=== PATIENT | male | born 1985 | race Hispanic/Latino ===

== ENCOUNTER 2018-10-25 06:21 | Day surgery (SDC) | payer OTHER ==
[2018-10-21 17:07] VITALS: BMI 26.2
[2018-10-25] MEDS ORDERED: Lactated Ringer's 1,000 ML IV ONE ×2 (08:08→10:33)
[2018-10-25] MEDS ORDERED: Bacitracin Ointment 30 GM TUBE ONE (08:18)
[2018-10-25] MEDS ORDERED: Lidocaine 1% w Epi 1:100,000 Inj ONE (08:18)
[2018-10-25] MEDS ORDERED: EPINEPHrine 1 mg/ml (1:1000) Inj ONE (08:18)
[2018-10-25] MEDS ORDERED: Bupivacaine 0.5% Inj(30mL) ONE (08:18)
[2018-10-25] MEDS ORDERED: Propofol 10 mg/ml Inj (20 ML) ONE (08:46)
[2018-10-25] MEDS ORDERED: Dexamethasone 4 mg/1 ml ONE (08:47)
[2018-10-25] MEDS ORDERED: Midazolam 2 MG/2 ML VIAL ONE (09:31)
[2018-10-25] MEDS ORDERED: ePHEDrine 50 mg/ml Inj ONE (10:01)
[2018-10-25] MEDS ORDERED: methylPREDNISolone Depo 80 mg/ml Inj ONE (10:40)
--- NOTE | 2018-10-25 10:54 | PCM.SURG1 ---
Surgeon's Initial Post Op Note - Surgeon's Notes Surgeon: Lebron Jacobs MD Director Electrical Engineering: Ashlie Hutchinson PA-C Type of Anesthesia: General LMA Pre-Operative Diagnosis: Left knee chondramalacia, loose bodies, synovitis Operative Findings: See op report Post-Operative Diagnosis: Same as pre-op dx Operation Performed: Left knee arthroscopy, synovetomy, chondroplasty, removal of loose bodies, partial medial meniscectomy Specimen/Specimens Removed: none Estimated Blood Loss: EBL {In ML}: 3 Date of Surgery/Procedure: 10/25/18 Time of Surgery/Procedure: 09:30
[2018-10-25] MEDS ORDERED: Oxycodone/Acetaminophen 5/325 mg Tab PO PRN (10:55)
[2018-10-25] MEDS ORDERED: HYDROmorphone 0.5 mg/0.5 ml ISec IVP PRN (10:58)
[2018-10-25] MEDS ORDERED: Lactated Ringer's 1,000 ML IV SCH (11:00)
[2018-10-25 13:58] VITALS: BP 110/62; PULSE 67; RESP 20; TEMP 98.1; O2SAT 97
--- NOTE | 2018-10-25 22:17 | OP ---
PROCEDURE DATE: 10/25/2018 ATTENDING PHYSICIAN: Lebron Jacobs MD INFORMATION SECURITY OFFICER: Ashlie Hutchinson PA-C PREOPERATIVE DIAGNOSES: 1. Left knee chondromalacia. 2. Multiple loose bodies. 3. Osteophyte. 4. Medial meniscus tear. POSTOPERATIVE DIAGNOSES: 1. Left knee major synovitis of all three compartments. 2. Degenerative complex tear of the posterior horn and the body of medial meniscus. 3. 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 4. Impinging osteophyte at the medial femoral condyle, lateral femoral condyle, patella, trochlea, and intercondylar notch. 5. Multiple cartilaginous loose bodies in the patellofemoral compartments and suprapatellar pouch. 6. Patellofemoral adhesions. PROCEDURES: 1. Left knee arthroscopy, major synovectomy of all three compartments. 2. Chondroplasty of patella, trochlea, medial femoral condyle, and lateral femoral condyle. 3. Abrasion osteoplasty of impinging osteophytes of the patella, trochlea, medial femoral condyle, and lateral femoral condyle. 4. Partial medial meniscectomy. 5. Removal of multiple cartilaginous loose bodies. 6. Lysis of adhesions. 7. Injection of the large joint. 8. A 22-modifier for previous surgery. ANESTHESIA TYPE: General. ESTIMATED BLOOD LOSS: 5 mL. SPECIMENS: None. COMPLICATIONS: None. INDICATIONS: After failing a course of non-operative therapy, the patient elected to undergo the above procedure. In the office, the risks and possible complications of knee arthroscopy were discussed in detail with the patient. These risks include but are not limited to continued pain, lack of motion, infection, vascular injury, DVT/PE, nerve injury including peroneal nerve dysfunction, reflex sympathetic dystrophy, compartment syndrome, unforeseen medical and/or anesthesia complications, limb loss, and even . The patient expressed an understanding of the risks and possible benefits of the procedure, and is also aware of the alternatives to surgery. An informed consent was obtained, and was checked immediately pre-op. PROCEDURE: The patient was correctly identified in the holding area and the left knee was marked with the surgeons initials. The patient was transported to the operating room and placed in the supine position, general anesthesia was obtained. A preoperative orthopaedic exam revealed effusion and trace range of motion of 0 to 120, stable through varus and valgus stress. The lower extremity was prepped and draped in the standard fashion, and the thigh was placed in an arthroscopic leg lerner. A well-padded tourniquet was applied to the patient's thigh. Time-out was completed confirming the correct operative site. Esmarch was used to exsanguinate the leg and tourniquet was inflated to 300 mmHg. A standard anterolateral viewing portals were made with a #11 blade after subdermal 1% lidocaine with epinephrine injection. The knee was distended with normal saline and epinephrine in a 1:1,000,000 mixture, at an initial pressure of 35 mmHg. The arthroscope was inserted from the anterolateral portal and moved into the medial compartment. Next, the anteromedial working portal was made with spinal needle localization. The arthroscopic probe was inserted, and all compartments of the knee were sequentially visualized. FINDINGS: Arthroscopic examination of the knee revealed: 1. Major synovitis of all three compartments. 2. Tear of the posterior horn and complex degenerative tear of posterior horn and the body of medial meniscus. 3. Grade IV chondromalacia of medial femoral condyle, trochlea, patella, and lateral femoral condyle. 4. Impinging osteophyte of medial femoral condyle, lateral femoral condyle, trochlea, patella, intercondylar notch. 5. Multiple cartilaginous loose bodies. 6. Patellofemoral adhesions, A2 and P2 were intact. Partial medial meniscectomy was performed with a combination of hand instruments and a 4.0-mm motorized shaver. The meniscus was debrided to a smooth, stable border with an excursion of less than 3 mm. The motorized shaver was used to mechanically debride the loose, fibrillated and fragmented chondral edges of the medial femoral condyle, trochlea, lateral femoral condyle, and patella to a stable border. Extreme care was taken to not disrupt the adjacent chondral surface. The edges of injured chondral area were probed to ensure stability after the shaver was withdrawn from the knee. The motorized shaver was used to perform a synovectomy of the compartments of mediolateral and patellofemoral compartments. The hypertrophic synovium was resected with minimal bleeding. No synovial incarceration was noted after synovectomy when the knee was put through a full passive range of motion. At this point, multiple chondral loose bodies were noted in the patellofemoral joint in medial gutter areas. Using the aforementioned arthroscopic portals, loose bodies were removed with arthroscopic techniques including graspers and the motorized shaver. Due to injuries to the patellofemoral region resulting in organized scar and suprapatellar adhesions, a decision was made to perform and anterior interval release to decrease the patellofemoral joint reaction force and relieve pressures over the patella and trochlea. The synovectomy was carried over to the suprapatellar pouch and an anterior interval release was performed over the anterior compartment and the suprapatellar pouch with the motorized shaver. The anterior fat pad was released and debulked during this procedure. The inflow was shut off and the area checked for hemostasis. Small bleeders were coagulated with the radiofrequency device. At this point, the impinging osteophyte of the medial femoral condyle, lateral femoral condyle, trochlea, patella, and intercondylar notch region was addressed utilizing the mechanical shaver. The area was debrided, and an abrasion chondroplasty was performed to prevent further impingement. Care was taken to preserve the surrounding intact chondral and osseous surfaces. The perimeter of the debrided area was inspected for loose chondral flaps, which were smoothed with the shaver. Finally, 1 mL of 40 mg Depo-Medrol mixed with 9 mL of 0.25% Marcaine was injected within the knee joint. CLOSURE: Portal closure was then accomplished utilizing sutures, and sterile dressing was applied consisting of Xeroform, 4x4's, sterile gauze, and two ABDs with a 6-inch Wei wrap. In addition, an "Ice-Man" automated portable cooling system pad was applied to the knee, over top of the sterile gauze and underneath the Wei wrap. This modality is medically necessary to maximize postoperative analgesia and to decrease the use of narcotic analgesics in the postoperative period. The sponge and needle count was correct at the end of the case, and all instruments were inspected and free of defects. Anesthesia was reversed and the patient was transferred to the recovery room in stable condition, having tolerated the procedure well. The attending surgeon was scrubbed and present throughout the critical portions of the case, including all of the intra-articular arthroscopic procedures. Post operatively, the patient will be weight bearing as tolerated and will utilize my standard post arthroscopy rehab protocol. The patient will be started on straight leg raising and quadriceps setting exercises in the recovery room and will progress to prone hangs as well as prone knee flexion exercises using an active assisted construct. During this procedure, I was assisted by Ashlie Hutchinson PA-C, who assisted in positioning the patient on the operating room table as well as transferring the patient from the operating room table to the recovery room stretcher. In addition, Ashlie Hutchinson PA-C, assisted me during the actual operative procedure by positioning the patient's extremity to allow for easier arthroscopic access to all areas of the joint. The presence of Ashlie Hutchinson PA-C, as my operative food and beverage assistant manager, was medically necessary to ensure the utmost safety of the patient in the pre, intra-, and postoperative periods. Due to the patient's previous procedure of arthroscopic meniscectomy performed in this area, this procedure was more difficult than a standard knee arthroscopy. This required extra time during prepping and draping as well as an extended operative time because of the added complexity. Lebron Jacobs MD
== END 2018-10-25 14:03 | disposition home or self-care (01) ==
LOC: H.OPSURG 06:21
PROVIDERS: ATTEND Orthopaedic Surgery
DX: M23.42 Loose body in knee, left knee (principal); M94.262 Chondromalacia, left knee; M25.762 Osteophyte, left knee; M23.232 Derangement of other medial meniscus due to old tear or injury, left knee
CPT/HCPCS: 29881; 97116; 97161; G8978; G8979; J0131; J0171; J0690; J1040; J1100; J1885; J2001; J2250; J2405; J2704; J2765; J3010; J7030; J7120